=== PATIENT | female | born 1985 | race African-American/Black ===

== ENCOUNTER 2016-11-16 13:31 | Emergency (ER) | payer OTHER ==
[~2016-11-16] VITALS: Ht 157.5 cm; Wt 118.3 kg
[~2016-11-16 13:31] MED LIST: ALBUTEROL SULF8.5 GM IH; ATARAX,VISTARIL50 MG PO; CIPRO HC OTIC S10 ML BOTH EARS; COLACE100 MG PO; COMPLETENATE T1 EACH PO; DOXYCYCLINE HY100 MG PO; HYCODAN SYRUP480 ML PO; KEFLEX500 MG PO; MOTRIN IB200 MG PO; Motrin PO; NAPROSYN500 MG PO; NATALCARE RX1 TABLE1 PO; NOHOMEMEDS; NORCO 5/3251 TABLET PO; PEN-VEE K,VEET250 MG PO; PEN-VEE K,VEET500 MG PO; PERCOCET 5/31 TABLET PO; PREDNISONE50 MG PO; PRENATAL VITAM1 EAC3 PO; PRENATAL1 EACH PO; PRILOSEC10 MG PO; Slow Fe PO; TYLENOL325 M1; ULTRAM50 MG PO; VICODIN,LORT1 TABLET PO; Vitron-C,Hematogen,F PO; ZOFRAN ODT4 MG PO; ~No Medications
[2016-11-16 14:23] LABS: ADD MIUA? YES; BILIRUBIN NEGATIVE; BLOOD NEGATIVE; COLOR YELLOW ((YELLOW)); GLUCOSE (STRIP) NEGATIVE; KETONES NEGATIVE; LEUKOCYTES NEGATIVE; NITRITE NEGATIVE; PROTEIN (STRIP) NEGATIVE; UROBILINOGEN 0.2 MG/DL (0.2-1.0)
[2016-11-16 14:31] LABS: BACTERIA RARE /HPF; EPITHELIAL CELLS 1+ /HPF; MUCUS TRACE /LPF; RED BLOOD CELLS 0-5 /HPF (0-5); UCUL ADDED? NO; WHITE BLOOD CELLS 0-5 /HPF (0-5)
[2016-11-16 16:36] LABS: MCH 28.4 PG (29.0-34.0); MCHC 33.2 G/DL (30.0-36.0); MCV 85.4 FL (83-99); MEAN PLAT.VOLUME 10.8 uM^3 (9.5-12.4); PLATELET COUNT 342 K/uL (156-360); RBC DIS.WIDTH-CV 14.7 % (11.8-14.6); RBC DIS.WIDTH-SD 46.1 % (39-53); RED BLOOD COUNT 3.98 M/uL (3.80-5.20); WHITE BLOOD COUNT 15.9 K/uL (4.1-10.2)
[2016-11-16 16:52] LABS: CHLORIDE 103 mEq/L (99-109); POTASSIUM 3.7 mEq/L (3.7-5.4); SODIUM 135 mEq/L (136-147)
[2016-11-16 16:54] LABS: GLUCOSE 73 mg/dL (70-99)
[2016-11-16 16:56] LABS: ANION GAP 9 MEQ/L (2-14); TOTAL BILIRUBIN 0.3 mg/dL (0.0-1.0)
[2016-11-16 16:58] LABS: ALKALINE PHOSPHATASE 82 IU/L (3-129); GFR ESTIMATE (CALCULATED) > 59 mL/min/
[2016-11-16 16:59] LABS: UREA NITROGEN (BUN) 7 mg/dL (9-23)
[2016-11-16 17:01] LABS: LIPASE 8 U/L (1.0-51.0)
[2016-11-16 19:08] VITALS: BP 112/73
== END 2016-11-16 17:21 | disposition home or self-care (01) ==
LOC: EME 13:31
DX: O26.891 Other specified pregnancy related conditions, first trimester (principal); R10.11 Right upper quadrant pain; D72.829 Elevated white blood cell count, unspecified; Z90.49 Acquired absence of other specified parts of digestive tract; Z3A.00 Weeks of gestation of pregnancy not specified; Z87.891 Personal history of nicotine dependence
CPT/HCPCS: 76801; 80053; 81003; 83690; 84702; 85027; 99281; 99284

== ENCOUNTER → 2016-12-27 | Outpatient (CLI) | payer OTHER | END | disposition home or self-care (01) | LOC: CDC 10:04 | DX: E11.9 Type 2 diabetes mellitus without complications (principal) | CPT/HCPCS: 93000 ==

== ENCOUNTER 2016-12-30 19:46 | Emergency (ER) | payer OTHER ==
[~2016-12-30] VITALS: Ht 160 cm; Wt 118.9 kg
[2016-12-30 21:08] LABS: HEMATOCRIT 31.9 % (36.0-46.0); MCH 28.8 PG (29.0-34.0); MCHC 33.5 G/DL (30.0-36.0); MCV 85.8 FL (83-99); MEAN PLAT.VOLUME 10.3 uM^3 (9.5-12.4); PLATELET COUNT 339 K/uL (156-360); RBC DIS.WIDTH-CV 13.8 % (11.8-14.6); RBC DIS.WIDTH-SD 43.3 % (39-53); RED BLOOD COUNT 3.72 M/uL (3.80-5.20); WHITE BLOOD COUNT 13.5 K/uL (4.1-10.2)
[2016-12-30 21:31] LABS: CHLORIDE 108 mEq/L (99-109); POTASSIUM 3.4 mEq/L (3.7-5.4); SODIUM 137 mEq/L (136-147)
[2016-12-30 21:33] LABS: GLUCOSE 144 mg/dL (70-99)
[2016-12-30 21:34] LABS: ANION GAP 10 MEQ/L (2-14)
[2016-12-30 21:37] LABS: GFR ESTIMATE (CALCULATED) > 59 mL/min/
[2016-12-30 21:38] LABS: UREA NITROGEN (BUN) 6 mg/dL (9-23)
[2016-12-30 21:45] LABS: QUANTITATIVE HCG 10072.5 MIU/ML
[2016-12-30 22:16] LABS: ADD MIUA? NO; BILIRUBIN NEGATIVE; BLOOD NEGATIVE; COLOR STRAW ((YELLOW)); GLUCOSE (STRIP) NEGATIVE; KETONES NEGATIVE; LEUKOCYTES NEGATIVE; NITRITE NEGATIVE; PROTEIN (STRIP) NEGATIVE; SPECIFIC GRAVITY 1.003 (1.000-1.030); UROBILINOGEN 0.2 MG/DL (0.2-1.0)
[2016-12-30 22:19] LABS: TOTAL BILIRUBIN 0.2 mg/dL (0.0-1.0)
[2016-12-30 22:20] LABS: ALKALINE PHOSPHATASE 71 IU/L (3-129)
[2016-12-30 22:23] LABS: DIRECT BILIRUBIN 0.1 mg/dL (0.0-0.3)
[2016-12-30 22:24] LABS: LIPASE 7 U/L (1.0-51.0)
[2016-12-30 22:25] VITALS: BP 137/65
[2016-12-30 22:29] LABS: UCUL ADDED? NO
== END 2016-12-30 22:26 | disposition home or self-care (01) ==
LOC: EME 19:46
PROVIDERS: Emergency Medicine
DX: O26.892 Other specified pregnancy related conditions, second trimester (principal); R10.9 Unspecified abdominal pain; O10.912 Unspecified pre-existing hypertension complicating pregnancy, second trimester; Z3A.17 17 weeks gestation of pregnancy; O99.612 Diseases of the digestive system complicating pregnancy, second trimester; K21.9 Gastro-esophageal reflux disease without esophagitis; Z88.8 Allergy status to other drugs, medicaments and biological substances
CPT/HCPCS: 76770; 76805; 80048; 80076; 81003; 83690; 84702; 85027; 87086; 99281; 99284

== ENCOUNTER 2017-01-30 18:08 | Outpatient (CLI) | payer OTHER ==
[2017-01-30 18:20] VITALS: BP 111/64
[2017-01-30 19:11] VITALS: BP 102/68
[2017-01-30 20:04] LABS: ADD MIUA? NO; BILIRUBIN NEGATIVE; BLOOD NEGATIVE; COLOR YELLOW ((YELLOW)); GLUCOSE (STRIP) >=500; KETONES NEGATIVE; LEUKOCYTES NEGATIVE; NITRITE NEGATIVE; PROTEIN (STRIP) NEGATIVE; UCUL ADDED? NO; UROBILINOGEN 0.2 MG/DL (0.2-1.0)
[2017-01-30 20:37] LABS: BASOPHIL COUNT 0.1 K/uL (0-0.1); EOSINOPHIL (%) 1.3 % (0-5); EOSINOPHIL COUNT 0.2 K/uL (0-0.3); HEMATOCRIT 34.2 % (36.0-46.0); IMMATURE GRANULOCYTE (%) 0.3 % (0.0-0.7); INSTRUMENT ABS NEUTROPHIL CT 8.8 K/uL; LYMPHOCYTE COUNT 3.5 K/uL (1.0-2.8); MCH 29.9 PG (29.0-34.0); MCHC 35.1 G/DL (30.0-36.0); MCV 85.1 FL (83-99); MEAN PLAT.VOLUME 10.9 uM^3 (9.5-12.4); MONOCYTE (%) 7.3 % (3-12); NEUTROPHIL (%) 64.8 % (45-76); NEUTROPHIL COUNT 8.8 K/uL (1.8-6.4); PLATELET COUNT 372 K/uL (156-360); RBC DIS.WIDTH-SD 40.1 % (39-53); RED BLOOD COUNT 4.02 M/uL (3.80-5.20); WHITE BLOOD COUNT 13.6 K/uL (4.1-10.2)
[2017-01-30 20:47] LABS: AMYLASE 26 IU/L (1-118); ANION GAP 11 MEQ/L (2-14); CHLORIDE 99 MEQ/L (99-109); POTASSIUM 3.7 MEQ/L (3.7-5.4); SAMPLE HEMOLYSIS CHECK 0; SAMPLE ICTERIC CHECK 0; SAMPLE LIPEMIA CHECK 0; SODIUM 130 MEQ/L (136-147); TOTAL BILIRUBIN 0.3 MG/DL (0.0-1.0)
[2017-01-30 20:52] LABS: ALKALINE PHOSPHATASE 80 IU/L (3-129); GFR ESTIMATE (CALCULATED) > 59 mL/min/; GLUCOSE 345 mg/dL (70-99); LIPASE 7 U/L (1.0-51.0); UREA NITROGEN (BUN) 6 mg/dL (9-23)
[2017-01-30 21:09] VITALS: BP 109/60
[2017-01-30 22:59] VITALS: BP 97/60
[2017-01-31 02:23] VITALS: BP 103/62
[2017-01-31 07:25] VITALS: BP 110/58
[2017-01-31 07:45] LABS: POINT-OF-CARE METER ID UU13113801
[2017-01-31 07:59] LABS: Estimated Average Glucose 189 mg/dL (70-123); HEMOGLOBIN A1c (GLYCOHEMOGLOB) 8.2 % HGB (Below 5.7)
[2017-01-31 08:11] LABS: POINT-OF-CARE METER ID UU13113692
[2017-01-31 08:23] LABS: ALKALINE PHOSPHATASE 75 IU/L (3-129); ANION GAP 10 MEQ/L (2-14); CHLORIDE 103 MEQ/L (99-109); GFR ESTIMATE (CALCULATED) > 59 mL/min/; GLUCOSE 296 mg/dL (70-99); POTASSIUM 3.7 MEQ/L (3.7-5.4); SAMPLE HEMOLYSIS CHECK 0; SAMPLE ICTERIC CHECK 0; SAMPLE LIPEMIA CHECK 0; SODIUM 135 MEQ/L (136-147); TOTAL BILIRUBIN 0.3 MG/DL (0.0-1.0); UREA NITROGEN (BUN) 5 mg/dL (9-23)
[2017-01-31 08:50] LABS: POINT-OF-CARE METER ID UU13113692
[2017-01-31 09:02] LABS: POINT-OF-CARE METER ID UU13113801
[2017-01-31 09:02] LABS: POINT-OF-CARE METER ID UU13113692
[2017-01-31 09:34] LABS: GLUCOSE 327 mg/dL (70-99)
[2017-01-31 09:50] LABS: POINT-OF-CARE METER ID UU13113801
[2017-01-31] MEDS ORDERED: NOVOLOG MI100 UNIT/3 SC ×3 (11:03)
[2017-01-31] MEDS ORDERED: NOVOLIN N100 UNITS/ SC ×2 (11:03)
[2017-01-31] MEDS ORDERED: PRENATAL VITAM1 EAC3 PO (11:03)
[2017-01-31] MEDS ORDERED: NOVOLOG 10100 UNITS/ SC (11:30)
[2017-01-31] MEDS ORDERED: INSULIN SYRING1 EA11 MC (11:34)
[2017-01-31 13:19] LABS: POINT-OF-CARE METER ID UU13113801
== END 2017-01-31 14:05 | disposition home or self-care (01) ==
LOC: LDRP-OP 18:08 → 2WEST 18:10
PROVIDERS: Nurse Practitioner; Obstetrics & Gynecology
DX: O24.112 Pre-existing type 2 diabetes mellitus, in pregnancy, second trimester (principal); E11.65 Type 2 diabetes mellitus with hyperglycemia; O99.212 Obesity complicating pregnancy, second trimester; E66.01 Morbid (severe) obesity due to excess calories; Z3A.21 21 weeks gestation of pregnancy
CPT/HCPCS: 76817; 80053; 81003; 82010; 82150; 82948; 83036; 83690; 84999; 85025; 87086; G0378; J1815; J7030; J7120

== ENCOUNTER 2017-02-14 13:58 | Inpatient (IN) | payer OTHER ==
[~2017-02-14] VITALS: Ht 160 cm; Wt 110.3 kg
[~2017-02-14 13:58] MED LIST changes: +INSULIN SYRING1 EA11 MC; +NOVOLIN N100 UNITS/ SC; +NOVOLOG 10100 UNITS/ SC; +NOVOLOG MI100 UNIT/3 SC
[2017-02-14 14:51] LABS: EOSINOPHIL (%) 0.7 % (0-5); EOSINOPHIL COUNT 0.1 K/uL (0-0.3); HEMATOCRIT 38.6 % (36.0-46.0); IMMATURE GRANULOCYTE (%) 0.2 % (0.0-0.7); INSTRUMENT ABS NEUTROPHIL CT 8.4 K/uL; LYMPHOCYTE COUNT 2.7 K/uL (1.0-2.8); MCH 28.6 PG (29.0-34.0); MCHC 33.7 G/DL (30.0-36.0); MCV 84.8 FL (83-99); MEAN PLAT.VOLUME 11.3 uM^3 (9.5-12.4); MONOCYTE (%) 7.3 % (3-12); MONOCYTE COUNT 0.9 K/uL (0-0.8); NEUTROPHIL COUNT 8.4 K/uL (1.8-6.4); PLATELET COUNT 404 K/uL (156-360); RBC DIS.WIDTH-SD 39.8 % (39-53); RED BLOOD COUNT 4.55 M/uL (3.80-5.20); WHITE BLOOD COUNT 12.1 K/uL (4.1-10.2)
[2017-02-14 15:23] LABS: CHLORIDE 95 mEq/L (99-109); POTASSIUM 4.3 mEq/L (3.7-5.4); SODIUM 126 mEq/L (136-147)
[2017-02-14 15:24] LABS: MAGNESIUM 1.8 mg/dL (1.3-2.7)
[2017-02-14 15:26] LABS: ADD MIUA? NO; BILIRUBIN NEGATIVE; BLOOD NEGATIVE; COLOR STRAW ((YELLOW)); GLUCOSE (STRIP) >=500; KETONES 20; LEUKOCYTES NEGATIVE; NITRITE NEGATIVE; PROTEIN (STRIP) NEGATIVE; SPECIFIC GRAVITY 1.029 (1.000-1.030); UCUL ADDED? NO; UROBILINOGEN 0.2 MG/DL (0.2-1.0)
[2017-02-14 15:27] LABS: ANION GAP 18 MEQ/L (2-14); GLUCOSE > 825 mg/dL (70-99); TOTAL BILIRUBIN 0.4 mg/dL (0.0-1.0)
[2017-02-14 15:29] LABS: ALKALINE PHOSPHATASE 117 IU/L (3-129); GFR ESTIMATE (CALCULATED) > 59 mL/min/
[2017-02-14 15:30] LABS: UREA NITROGEN (BUN) 8 mg/dL (9-23)
[2017-02-14] MEDS ORDERED: NOVOLIN N100 UNITS/ SC (16:00)
[2017-02-14 17:29] LABS: POINT-OF-CARE METER ID UU13113702
[2017-02-14 18:11] LABS: Estimated Average Glucose 243 mg/dL (70-123)
[2017-02-14 18:20] LABS: HEMOGLOBIN A1c (GLYCOHEMOGLOB) 10.1 % HGB (Below 5.7)
[2017-02-14 19:10] VITALS: BP 106/50; BP 109/60
[2017-02-14 19:47] LABS: POINT-OF-CARE METER ID UU13113748
[2017-02-14 20:00] VITALS: BP 108/63
[2017-02-14 20:01] LABS: ANION GAP 12 MEQ/L (2-14); CHLORIDE 105 MEQ/L (99-109); SAMPLE HEMOLYSIS CHECK 0; SAMPLE ICTERIC CHECK 0; SAMPLE LIPEMIA CHECK 0; SODIUM 134 MEQ/L (136-147)
[2017-02-14 20:06] LABS: GFR ESTIMATE (CALCULATED) > 59 mL/min/; UREA NITROGEN (BUN) 5 mg/dL (9-23)
[2017-02-14 20:09] LABS: GLUCOSE 323 mg/dL (70-99)
[2017-02-14 21:00] VITALS: BP 120/48
[2017-02-14 21:21] LABS: POINT-OF-CARE METER ID UU13113748
[2017-02-14 22:24] LABS: POINT-OF-CARE METER ID UU13113748
[2017-02-14 23:00] VITALS: BP 101/65
[2017-02-15] VITALS (10 sets, daily range): BP systolic 79–136; BP diastolic 48–83
[2017-02-15 00:32] LABS: METH RESISTANT S AUREUS PCR NEGATIVE (NEGATIVE)
[2017-02-15 00:35] LABS: PROBE CHECK PASS; SPECIMEN PROCESSING CONTROL PASS
[2017-02-15 05:36] LABS: POTASSIUM 4.5 mEq/L (3.7-5.4); SODIUM 133 mEq/L (136-147)
[2017-02-15 05:37] LABS: GLUCOSE 391 mg/dL (70-99)
[2017-02-15 05:39] LABS: ANION GAP 11 MEQ/L (2-14)
[2017-02-15 05:41] LABS: GFR ESTIMATE (CALCULATED) > 59 mL/min/
[2017-02-15 05:42] LABS: UREA NITROGEN (BUN) 5 mg/dL (9-23)
[2017-02-15 06:02] LABS: CHLORIDE 107 mEq/L (99-109)
[2017-02-15 06:08] LABS: POINT-OF-CARE METER ID UU14208751
[2017-02-15 09:56] LABS: POINT-OF-CARE METER ID UU14208751
[2017-02-15 13:02] LABS: POINT-OF-CARE METER ID UU14208751
[2017-02-15 16:33] LABS: POINT-OF-CARE METER ID UU13113801
[2017-02-15 22:19] LABS: POINT-OF-CARE METER ID UU13113801
[2017-02-16] VITALS (8 sets, daily range): BP systolic 84–131; BP diastolic 55–74
[2017-02-16 06:38] LABS: POINT-OF-CARE METER ID UU13113801
[2017-02-16 11:21] LABS: POINT-OF-CARE METER ID UU13113801
[2017-02-16 16:24] LABS: POINT-OF-CARE METER ID UU13113801
[2017-02-16 23:05] LABS: POINT-OF-CARE METER ID UU13113801
[2017-02-17 02:49] VITALS: BP 99/55
[2017-02-17 06:59] LABS: POINT-OF-CARE METER ID UU13113801
[2017-02-17 07:24] VITALS: BP 93/54
[2017-02-17 08:05] LABS: ANION GAP 11 MEQ/L (2-14); CHLORIDE 104 MEQ/L (99-109); GFR ESTIMATE (CALCULATED) > 59 mL/min/; GLUCOSE 290 mg/dL (70-99); POTASSIUM 3.7 MEQ/L (3.7-5.4); SAMPLE HEMOLYSIS CHECK 0; SAMPLE ICTERIC CHECK 0; SAMPLE LIPEMIA CHECK 0; SODIUM 135 MEQ/L (136-147); UREA NITROGEN (BUN) 5 mg/dL (9-23)
[2017-02-17 11:30] VITALS: BP 112/53
[2017-02-17 11:43] LABS: POINT-OF-CARE METER ID UU13113801
[2017-02-17] MEDS ORDERED: NOVOLOG 10100 UNITS/ SC (12:09)
[2017-02-17] MEDS ORDERED: NOVOLIN N100 UNITS/ SC (12:10)
[2017-02-17] MEDS ORDERED: NOVOLOG PE100 UNITS/ SC (12:11)
[2017-02-17 16:14] VITALS: BP 101/54
[2017-02-17 16:30] LABS: POINT-OF-CARE METER ID UU13113801
== END 2017-02-17 18:15 | disposition home or self-care (01) | DRG 781 ==
LOC: EME 13:58 → 2WEST 16:53 → EDOF 16:53 → ENRESERV 16:59 → 4WEST 19:10 → CANRESERV 02-15 11:26 → ENRESERV 02-15 11:26 → 2WEST 02-15 14:17
PROVIDERS: Emergency Medicine; Hospitalist; Internal Medicine Critical Care Medicine
DX: O24.112 Pre-existing type 2 diabetes mellitus, in pregnancy, second trimester (principal); E11.10 Type 2 diabetes mellitus with ketoacidosis without coma; Z3A.24 24 weeks gestation of pregnancy; Z91.14 Patient's other noncompliance with medication regimen; Z91.11 Patient's noncompliance with dietary regimen; O16.2 Unspecified maternal hypertension, second trimester; O99.012 Anemia complicating pregnancy, second trimester; O99.612 Diseases of the digestive system complicating pregnancy, second trimester; O99.352 Diseases of the nervous system complicating pregnancy, second trimester; G43.909 Migraine, unspecified, not intractable, without status migrainosus; K21.9 Gastro-esophageal reflux disease without esophagitis; O99.212 Obesity complicating pregnancy, second trimester; E66.9 Obesity, unspecified; Z68.41 Body mass index [BMI] 40.0-44.9, adult; R35.0 Frequency of micturition; Z80.3 Family history of malignant neoplasm of breast; Z83.3 Family history of diabetes mellitus; Z86.73 Personal history of transient ischemic attack (TIA), and cerebral infarction without residual deficits; Z87.891 Personal history of nicotine dependence
CPT/HCPCS: 76805; 80048; 80048 91; 80053; 81003; 82010; 82948; 83036; 83735; 84100; 85025; 87641; 99281; 99285; J1815; J2405; J7030; J7050

== ENCOUNTER 2017-04-20 17:54 | Outpatient (CLI) | payer OTHER ==
[~2017-04-20] VITALS: Ht 160 cm; Wt 119.0 kg
[~2017-04-20 17:54] MED LIST changes: +NOVOLOG PE100 UNITS/ SC
[2017-04-20 18:12] VITALS: BP 126/60
[2017-04-20 19:34] LABS: BASOPHIL (%) 0.2 % (0-1); EOSINOPHIL COUNT 0.1 K/uL (0-0.3); HEMATOCRIT 31.3 % (36.0-46.0); HEMOGLOBIN 10.2 G/DL (11.9-15.5); IMMATURE GRANULOCYTE (%) 0.3 % (0.0-0.7); LYMPHOCYTE (%) 19.1 % (15-42); LYMPHOCYTE COUNT 2.4 K/uL (1.0-2.8); MCH 27.6 PG (29.0-34.0); MCHC 32.6 G/DL (30.0-36.0); MCV 84.6 FL (83-99); NEUTROPHIL (%) 71.4 % (45-76); NEUTROPHIL COUNT 8.8 K/uL (1.8-6.4); PLATELET COUNT 411 K/uL (156-360); RBC DIS.WIDTH-CV 14.8 % (11.8-14.6); WHITE BLOOD COUNT 12.4 K/uL (4.1-10.2)
[2017-04-20 19:44] LABS: ALBUMIN 3.3 G/DL (3.2-4.8); CHLORIDE 105 MEQ/L (99-109); POTASSIUM 3.3 MEQ/L (3.7-5.4); SODIUM 136 MEQ/L (136-147); TOTAL BILIRUBIN 0.4 MG/DL (0.0-1.0)
[2017-04-20 19:50] LABS: ALKALINE PHOSPHATASE 89 IU/L (3-129); ALT (GPT) 8 IU/L (3-49); AST (GOT) 11 IU/L (2-34); CREATININE 0.3 MG/DL (0.6-1.3); GFR ESTIMATE (CALCULATED) > 59 mL/min/; GLUCOSE 98 mg/dL (70-99); TOTAL PROTEIN 6.5 G/DL (6.4-8.3); UREA NITROGEN (BUN) 4 mg/dL (9-23)
[2017-04-20 19:58] LABS: APPEARANCE SL.HAZY ((CLEAR)); BILIRUBIN NEGATIVE; BLOOD NEGATIVE; COLOR AMBER ((YELLOW)); GLUCOSE (STRIP) NEGATIVE; KETONES 80; LEUKOCYTES NEGATIVE; NITRITE NEGATIVE; PROTEIN (STRIP) 100; SPECIFIC GRAVITY 1.024 (1.000-1.030)
[2017-04-20 20:03] LABS: BACTERIA RARE /HPF; EPITHELIAL CELLS 1+ /HPF; MUCUS 2+ /LPF; RED BLOOD CELLS 0-5 /HPF (0-5); UCUL ADDED? NO; WHITE BLOOD CELLS 0-5 /HPF (0-5)
[2017-04-20 22:42] LABS: CARBON DIOXIDE (BICARBONATE) 22.7 MEQ/L (20-31)
[2017-04-20 22:50] LABS: MAGNESIUM 1.6 mg/dL (1.3-2.7)
[2017-04-20 23:32] VITALS: BP 118/55
== END 2017-04-21 02:05 | disposition home or self-care (01) ==
LOC: LDRP-OP 17:54 → 2WEST 17:55 → LDRP-OP 07-09 14:12
PROVIDERS: Hospitalist; Obstetrics & Gynecology
DX: O99.89 Other specified diseases and conditions complicating pregnancy, childbirth and the puerperium (principal); R11.2 Nausea with vomiting, unspecified; R19.7 Diarrhea, unspecified; R10.9 Unspecified abdominal pain; O24.113 Pre-existing type 2 diabetes mellitus, in pregnancy, third trimester; E11.9 Type 2 diabetes mellitus without complications; Z79.4 Long term (current) use of insulin; O09.33 Supervision of pregnancy with insufficient antenatal care, third trimester; Z91.19 Patient's noncompliance with other medical treatment and regimen; O99.213 Obesity complicating pregnancy, third trimester; E66.9 Obesity, unspecified; Z68.41 Body mass index [BMI] 40.0-44.9, adult; Z90.49 Acquired absence of other specified parts of digestive tract; Z80.3 Family history of malignant neoplasm of breast; Z80.0 Family history of malignant neoplasm of digestive organs; Z83.3 Family history of diabetes mellitus; Z88.6 Allergy status to analgesic agent; Z88.8 Allergy status to other drugs, medicaments and biological substances; Z3A.33 33 weeks gestation of pregnancy
CPT/HCPCS: 59025; 80053; 81003; 82010; 82803; 82948; 83690; 83735; 83930; 84100; 85025; G0378

== ENCOUNTER 2017-05-14 14:18 | Outpatient (CLI) | payer OTHER ==
[~2017-05-14] VITALS: Ht 160 cm; Wt 115.7 kg
[2017-05-14 14:36] VITALS: BP 102/57
[2017-05-14] MEDS ORDERED: PRENATAL TABLE1 EAC3 PO (14:43)
== END 2017-05-14 15:58 | disposition home or self-care (01) ==
LOC: LDRP-OP 14:18 → 2WEST 14:19 → LDRP-OP 07-09 02:16
PROVIDERS: Obstetrics & Gynecology Obstetrics
DX: O47.03 False labor before 37 completed weeks of gestation, third trimester (principal); O24.414 Gestational diabetes mellitus in pregnancy, insulin controlled; Z3A.36 36 weeks gestation of pregnancy
CPT/HCPCS: 59025; 82948; G0378

== ENCOUNTER 2017-05-18 07:21 | Inpatient (IN) | payer OTHER ==
[2017-05-18] VITALS (26 sets, daily range): BP systolic 96–135; BP diastolic 53–81
[~2017-05-18] VITALS: Ht 160 cm; Wt 115.0 kg
[~2017-05-18 07:21] MED LIST changes: +PRENATAL TABLE1 EAC3 PO
[2017-05-18 09:39] LABS: BASOPHIL (%) 0.2 % (0-1); EOSINOPHIL (%) 0.7 % (0-5); EOSINOPHIL COUNT 0.1 K/uL (0-0.3); HEMOGLOBIN 9.9 G/DL (11.9-15.5); IMMATURE GRANULOCYTE (%) 0.4 % (0.0-0.7); LYMPHOCYTE (%) 23.8 % (15-42); LYMPHOCYTE COUNT 3.2 K/uL (1.0-2.8); MCH 27.8 PG (29.0-34.0); MCV 84.3 FL (83-99); MONOCYTE (%) 7.4 % (3-12); NEUTROPHIL (%) 67.5 % (45-76); NEUTROPHIL COUNT 9.2 K/uL (1.8-6.4); PLATELET COUNT 423 K/uL (156-360); RBC DIS.WIDTH-CV 15.3 % (11.8-14.6); RBC DIS.WIDTH-SD 47.6 % (39-53); RED BLOOD COUNT 3.56 M/uL (3.80-5.20); WHITE BLOOD COUNT 13.6 K/uL (4.1-10.2)
[2017-05-18 10:04] LABS: ALBUMIN 3.2 G/DL (3.2-4.8); ALKALINE PHOSPHATASE 99 IU/L (3-129); ALT (GPT) 6 IU/L (3-49); AST (GOT) 9 IU/L (2-34); CHLORIDE 107 MEQ/L (99-109); CREATININE 0.4 MG/DL (0.6-1.3); GFR ESTIMATE (CALCULATED) > 59 mL/min/; GLUCOSE 143 mg/dL (70-99); POTASSIUM 3.4 MEQ/L (3.7-5.4); SODIUM 136 MEQ/L (136-147); TOTAL BILIRUBIN 0.3 MG/DL (0.0-1.0); TOTAL PROTEIN 6.3 G/DL (6.4-8.3); UREA NITROGEN (BUN) 3 mg/dL (9-23)
[2017-05-18 13:34] LABS: BENZODIAZEPINES, URINE SCREEN Negative (200 ng/mL)
[2017-05-19 00:28] VITALS: BP 108/55
[2017-05-19 07:11] LABS: BASOPHIL (%) 0.3 % (0-1); EOSINOPHIL (%) 0.8 % (0-5); EOSINOPHIL COUNT 0.1 K/uL (0-0.3); HEMATOCRIT 27.7 % (36.0-46.0); HEMOGLOBIN 8.8 G/DL (11.9-15.5); IMMATURE GRANULOCYTE (%) 0.5 % (0.0-0.7); LYMPHOCYTE (%) 24.6 % (15-42); LYMPHOCYTE COUNT 3.7 K/uL (1.0-2.8); MCH 26.6 PG (29.0-34.0); MCHC 31.8 G/DL (30.0-36.0); MCV 83.7 FL (83-99); MONOCYTE (%) 8.3 % (3-12); MONOCYTE COUNT 1.2 K/uL (0-0.8); NEUTROPHIL (%) 65.5 % (45-76); NEUTROPHIL COUNT 9.9 K/uL (1.8-6.4); PLATELET COUNT 405 K/uL (156-360); RBC DIS.WIDTH-CV 15.2 % (11.8-14.6); RBC DIS.WIDTH-SD 46.5 % (39-53); RED BLOOD COUNT 3.31 M/uL (3.80-5.20)
[2017-05-19 08:06] VITALS: BP 116/69
[2017-05-19] MEDS ORDERED: Tylenol Extra Streng PO (09:40)
[2017-05-19 14:56] VITALS: BP 123/61
[2017-05-19 23:02] VITALS: BP 129/67
[2017-05-20 07:57] VITALS: BP 102/61
[2017-05-20] MEDS ORDERED: PERCOCET 5/31 TABLET PO (09:37)
[2017-05-20] MEDS ORDERED: IBUPROFEN800 MG PO (09:37)
== END 2017-05-20 13:42 | disposition home or self-care (01) | DRG 774 ==
LOC: LDRP-OP 07:21 → 2WEST 07:22 → LDRP-OP 19:16 → 2WEST 21:11 → LDRP-OP 07-09 18:43
PROVIDERS: Midwife; Obstetrics & Gynecology
DX: O24.12 Pre-existing type 2 diabetes mellitus, in childbirth (principal); Z68.41 Body mass index [BMI] 40.0-44.9, adult; E11.65 Type 2 diabetes mellitus with hyperglycemia; Z37.0 Single live birth; Z79.4 Long term (current) use of insulin; Z91.19 Patient's noncompliance with other medical treatment and regimen; Z3A.37 37 weeks gestation of pregnancy; O99.824 Streptococcus B carrier state complicating childbirth; O99.214 Obesity complicating childbirth; E66.01 Morbid (severe) obesity due to excess calories; O76 Abnormality in fetal heart rate and rhythm complicating labor and delivery
CPT/HCPCS: 80053; 80306 90; 82948; 85025; 86850; 86900; 86901; C1755; J0595; J1815; J2405; J2540; J2795; J3010; J7120

== ENCOUNTER 2017-10-20 16:19 | Emergency (ER) | payer OTHER ==
[~2017-10-20] VITALS: Ht 157.5 cm; Wt 108.8 kg
[~2017-10-20 16:19] MED LIST changes: +IBUPROFEN800 MG PO; +Tylenol Extra Streng PO
[2017-10-20 16:46] LABS: HEMATOCRIT 30.5 % (36.0-46.0); HEMOGLOBIN 10.1 G/DL (11.9-15.5); MCH 27.2 PG (29.0-34.0); MCHC 33.1 G/DL (30.0-36.0); PLATELET COUNT 416 K/uL (156-360); RBC DIS.WIDTH-CV 15.3 % (11.8-14.6); RBC DIS.WIDTH-SD 45.8 % (39-53); RED BLOOD COUNT 3.72 M/uL (3.80-5.20); WHITE BLOOD COUNT 12.8 K/uL (4.1-10.2)
[2017-10-20 17:14] LABS: CHLORIDE 107 mEq/L (99-109); POTASSIUM 3.6 mEq/L (3.7-5.4); SODIUM 140 mEq/L (136-147)
[2017-10-20 17:16] LABS: GLUCOSE 106 mg/dL (70-99)
[2017-10-20 17:20] LABS: CREATININE 0.7 mg/dL (0.6-1.3); GFR ESTIMATE (CALCULATED) > 59 mL/min/
[2017-10-20 17:21] LABS: UREA NITROGEN (BUN) 7 mg/dL (9-23)
[2017-10-20 17:28] LABS: QUANTITATIVE HCG < 4.0 MIU/ML
[2017-10-20] MEDS ORDERED: FIORICET 50-301 EAC1 PO (19:18)
[2017-10-20] MEDS ORDERED: ZOFRAN ODT4 MG PO (19:18)
[2017-10-20 20:27] VITALS: BP 116/78
== END 2017-10-20 20:29 | disposition home or self-care (01) ==
LOC: EME 16:19
PROVIDERS: Nurse Practitioner Family
DX: G43.909 Migraine, unspecified, not intractable, without status migrainosus (principal); R42 Dizziness and giddiness; E11.9 Type 2 diabetes mellitus without complications; I10 Essential (primary) hypertension; Z87.891 Personal history of nicotine dependence
CPT/HCPCS: 70450; 80048; 84702; 85027; 93005; 99281; 99285; J1200; J1885; J2765; J7030

== ENCOUNTER 2017-11-08 21:32 | Emergency (ER) | payer OTHER ==
[~2017-11-08] VITALS: Ht 160 cm; Wt 106.0 kg
[~2017-11-08 21:32] MED LIST changes: +FIORICET 50-301 EAC1 PO
[2017-11-09] MEDS ORDERED: MOTRIN800 MG PO (00:50)
[2017-11-09] MEDS ORDERED: COLACE100 MG PO (00:50)
[2017-11-09] MEDS ORDERED: ANUSOL-HC21 GM PR (00:50)
[2017-11-09 01:52] VITALS: BP 110/70
== END 2017-11-09 01:53 | disposition home or self-care (01) ==
LOC: EME 21:32
DX: K60.2 Anal fissure, unspecified (principal); K64.4 Residual hemorrhoidal skin tags; K62.5 Hemorrhage of anus and rectum; I10 Essential (primary) hypertension; E11.9 Type 2 diabetes mellitus without complications; Z87.891 Personal history of nicotine dependence; Z88.6 Allergy status to analgesic agent; Z88.8 Allergy status to other drugs, medicaments and biological substances
CPT/HCPCS: 82948; 99281; 99284